=== PATIENT | female | born 1995 | race Asian ===

== ENCOUNTER 2020-03-14 23:10 | Emergency (ER) | payer OTHER, MEDICAID ==
[~2020-03-14] VITALS: Ht 165.1 cm; Wt 43.1 kg
[2020-03-14 23:21] VITALS: Ht 165.1 cm; Wt 43.1 kg
[2020-03-15 01:55] VITALS: BP 113/70
== END 2020-03-15 01:55 | disposition home or self-care (01) ==
LOC: ED 23:10
DX: S01.81XA Laceration without foreign body of other part of head, initial encounter (principal); M79.602 Pain in left arm; M25.512 Pain in left shoulder; V49.49XA Driver injured in collision with other motor vehicles in traffic accident, initial encounter; Y93.I9 Activity, other involving external motion; Y92.488 Other paved roadways as the place of occurrence of the external cause; Y99.8 Other external cause status